=== PATIENT | female | born 1965 | race Caucasian/White ===

== ENCOUNTER 2023-08-02 22:30 | Observation (INO) | payer MEDICAID, OTHER ==
[2023-08-02] MEDS ORDERED: solu-MEDROL ONE (23:08)
[2023-08-02] MEDS ORDERED: Sterile H2O 10 ml IJ ONE (23:08)
[2023-08-02 23:10] LABS: Absolute Neutrophil Ct (ANC) 5.21 x10^3/uL (1.4-6.9); BASOPHIL % 0.7 % (0.0-0.4); Basophil (Absolute #) 0.07 x10^3/uL (0-0.4); Eosinophil % 5.1 % (0.00-5.0); Eosinophil (Absolute #) 0.51 x10^3/uL (0-0.5); Hematocrit 42.9 % (35-47); Hemoglobin 14.5 g/dL (12.0-16.0); IMMATURE GRAN # 0.04 x10^3u/L (0.00-0.03); IMMATURE GRAN % 0.4 % (0.00-0.4); Lymphocyte (Absolute #) 3.47 x10^3/uL (1.0-4.6); Lymphocytes % 34.6 % (24.0-44.0); Mean Cell Volume 95.3 fL (78-100); Mean Corpuscular Hemoglobin 32.2 pg (26-32); Mean Corpuscular Hgb Concent. 33.8 g/dL (32-36); Mean Platelet Volume 10.6 fL (7.5-11.0); Monocyte (Absolute #) 0.73 x10^3/uL (0.0-1.3); Monocytes % 7.3 % (0.0-12.0); Neutrophil % 51.9 % (36.0-66.0); Platelet Count 184 x10^3/uL (150-450); Red Cell Distribution Width 13.2 % (11.5-14.0)
[2023-08-02] MEDS: solu-MEDROL 125 MG, Sterile H2O 10 ml 2 ML IV ONE (23:32)
[2023-08-02 23:33] LABS: ANION GAP 14.6 MEQ/L (5-15); BILIRUBIN,TOTAL 0.6 mg/dL (0.2-1.3); Calcium 9.3 mg/dL (8.4-10.2); Creatinine 1 0.75 mg/dL (0.52-1.04); EST GLOMERULAR FILTRATION RATE 91.1 ML/MIN; Potassium 3.4 mmol/L (3.5-5.1); Total Protein 6.8 g/dL (6.3-8.2)
[2023-08-02 23:44] LABS: NT PRO BNPII 85.9 pg/mL (<300); TROPONIN < 0.012 ng/mL (0.000-0.033)
[2023-08-02] MEDS ORDERED: DUONEB 0.5-3 MG/3 ml Neb IH ONE (23:46)
[2023-08-02] MEDS: DUONEB 0.5-3 MG/3 ml Neb IH ONE (23:47)
--- NOTE | 2023-08-02 23:55 | XRAY ---
CLINICAL HISTORY: numbness/ tingling COMPARISON: None. TECHNIQUE: Axial noncontrast CT scan of the brain was performed from the skull base to the high parietal region .One of the following dose reduction techniques were utilized for this exam: Automated exposure control, adjustment of the mA and/or kV according to patient size, use of iterative reconstruction. FINDINGS: Suspicious hypodense is seen in the luis on right side on stroke window, concerning for acute infarct. Other possibility could be artifactual hypodensity. A 3 mm calcified nodule is seen in the quadrigeminal cistern on left side. The visualized brain parenchyma shows normal appearance. Bruner-white matter differentiation is maintained. No midline shifts or deformity. No intracerebral or extra axial hematoma. Normal size and configuration of the cerebral ventricles. Normal CT appearance of the posterior fossa structures namely the cerebellar hemispheres, brainstem and cerebellar peduncles. The IACs are unremarkable. The cerebello-pontine angles are clear. The osseous structures in the skull base are unremarkable. No definite calvarium fractures. The scanned paranasal sinuses are clear. Bilateral mastoid air cells appear unremarkable. IMPRESSION: 1. Suspicious hypodense in the luis on right side on stroke window, concerning for acute infarct. Other possibility could be artifactual hypodensity. MR imaging with stroke protocol is recommended for better evaluation 2. 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 Electronically Signed by: Darren Izquierdo MD. (08/02/2023 23:50:21 EDT)
--- NOTE | 2023-08-02 23:58 | ERPHSYRPT ---
- History of Present Illness Time Seen by Provider: 08/02/23 22:40 Source: patient, family Exam Limitations: no limitations Patient Subjective Stated Complaint: pt states that at approx 2200 she noticed dulled sensation to tongue, lips, and right hand/fingers. reports tingling to fingers on right hand. states that at that same approx time she started experiencing SOB. 911 was called and pt was evaluated by EMS/ Fire Rescue then pt decided to come to ED via POV Triage Nursing Assessment: pt brought to room 9 via wheelchair then ambulated to and from restroom to provide urine sample for lab testing. pt is alert and oriented times three, able to speak in complee sentences, able to move all extremities, and with resp even and unlabored without use of accessory muscles. heart sounds are present and regular upon auscultation. bilat posterior lung sounds with expiratory wheezes throughout, bilat radial and pedal pulses palpable. no JVD or edema noted. see NIHSS documentation. pt denies oquendo, pain, cp, lightheadedness, weakness, dizziness, fever, cough, chills, n/v, diarrhea, change in appetite or difficulty with urinary or bowel elimination. pt reports continued dulled sensation to entire tongue, upper and lower lips, and right hand/fingers. right fingers are also reportedly tingling. pt denies difficulty swallowing, or breathing. Physician History: 58 years old female with history of hypertension, tobacco abuse, COPD presented in the ER with sudden onset numbness and tingling sensation in the lower lip lip across and right side of tongue and right fingertip around 10 PM. Denies any difficulty speech or visual disturbance. No numbness tingling or weakness anywhere else. Patient reports having some shortness of breath and was feeling very anxious, took rescue inhaler and her shortness of breath is better. She has cough and shortness of breath at her baseline from COPD and currently not any worse than usual. Denies any chest pain or palpitations. Denies any headache or neck pain. No history of stroke in the past. Allergies/Adverse Reactions: No Known Drug Allergies Allergy (Unverified 08/02/23 22:38) Home Medications: Albuterol Sulfate [Proair Respiclick] 2 puff IH UD PRN 08/02/23 [History] Donepezil HCl 10 mg [Aricept 10 MG] 10 mg PO DAILY 08/02/23 [History] Fluticasone Furoate [Arnuity Ellipta] 100 mcg IH DAILY 08/02/23 [History] Lisinopril 10 mg [Zestril 10 MG] 10 mg PO DAILY 08/02/23 [History] Meloxicam 15 mg [Meloxicam 15 MG] 15 mg PO DAILY 08/02/23 [History] hydroCHLOROthiazide [Hydrochlorothiazide] 12.5 mg PO DAILY 08/02/23 [History] Hx Tetanus, Diphtheria Vaccination/Date Given: No Hx Influenza Vaccination/Date Given: No Hx Pneumococcal Vaccination/Date Given: No Immunizations Up to Date: No Travel Risk - International Travel Have you traveled outside of the country in past 3 weeks: No - Emerging Infectious Disease Are you exhibiting symptoms associated with any current EIDs: No - Review of Systems Constitutional: Fatigue, Weakness Eyes: No Symptoms Ears, Nose, & Throat: No Symptoms Respiratory: Cough, Dyspnea, Wheezing Cardiac: No Symptoms Abdominal/Gastrointestinal: No Symptoms Genitourinary Symptoms: No Symptoms Musculoskeletal: No Symptoms Skin: No Symptoms Endocrine: No Symptoms Hematologic/Lymphatic: No Symptoms - Past Medical History Pertinent Past Medical History: Yes Neurological History: Dementia ENT History: No Pertinent History Cardiac History: Hypertension Respiratory History: COPD, Emphysema Endocrine Medical History: No Pertinent History Musculoskeletal History: Osteoarthritis GI Medical History: No Pertinent History History: No Pertinent History Psycho-Social History: No Pertinent History Female Reproductive Disorders: No Pertinent History - Past Surgical History Past Surgical History: Yes Neuro Surgical History: No Pertinent History Cardiac: No Pertinent History Respiratory: No Pertinent History Gastrointestinal: No Pertinent History Genitourinary: No Pertinent History Musculoskeletal: No Pertinent History Female Surgical History: Section - Social History Smoking Status: Current every day smoker How long have you smoked: 11yo Exposure to second hand smoke: Yes Drug Use: none - Nursing Vital Signs Nursing Vital Signs: Initial Vital Signs Temperature 98.0 F 08/02/23 22:39 Pulse Rate 94 H 08/02/23 22:39 Respiratory Rate 24 08/02/23 22:39 Blood Pressure 133/79 08/02/23 22:39 O2 Sat by Pulse Oximetry 92 L 08/02/23 22:39 Pain Scale Pain Intensity 0 - Thayer Coma Scale Best Eye Response (Sybil): (4) open spontaneously Best Verbal Response (Sybil): (5) oriented Best Motor Response (Thayer): (6) obeys commands Sybil Total: 15 - Physical Exam General Appearance: no apparent distress, alert Eye Exam: bilateral eye: normal inspection, PERRL, EOMI Ears, Nose, Throat Exam: normal ENT inspection, TMs normal, pharynx normal, moist mucous membranes Neck Exam: normal inspection, non-tender, supple, full range of motion Respiratory: rhonchi, wheezing, No respiratory distress Cardiovascular: regular rate/rhythm, normal heart sounds Gastrointestinal: soft, normal bowel sounds, No tenderness Back Exam: normal inspection, normal range of motion Extremity Exam: normal inspection, normal range of motion Mental Status: alert, oriented x 3, 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 Exam: normal hearing, normal speech, PERRL Coordination/Gait: normal finger to nose, normal gait, normal cerebellar function Motor/Sensory: no motor deficit, sensory deficit (Lower lip decrease sensation of touch) DTR: bicep (R): 2+, bicep (L): 2+, knee (R): 2+, knee (L): 2+ Skin Exam: normal color SpO2 Interpretation: normal SpO2: 92 O2 Delivery: Room Air - Course EKG Interpreted by Me: RATE ([id number]), Sinus Rhythm, NORMAL AXIS, NORMAL INTERVALS, Non-specific ST Changes Ordered Tests: Active Orders 24 hr Category Date Time Status [employer] STAT Care 08/02/23 22:57 Active EKG-ER Only STAT Care 08/02/23 22:56 Active IV Insertion STAT Care 08/02/23 22:56 Active Oxygen-ED Only Nasal Cannula 3 lpm Care 08/03/23 00:22 Active Tele-Health Consult ROUTINE Cons 08/03/23 00:20 Active CHEST 1 VIEW (PORTABLE) Stat Exams 08/02/23 22:[address] ANGIOGRAPHY NECK [CT] Stat Exams 08/03/23 01:42 Ordered CTA HEAD W AND/OR WO CONTRAST [CT] Stat Exams 08/03/23 01:42 Ordered HEAD WITHOUT CONTRAST [CT] Stat Exams 08/02/23 22:53 Completed BLOOD CULTURE Stat Lab 08/02/23 23:36 Received CBC W DIFF Stat Lab 08/02/23 23:07 Completed CMP Stat Lab 08/02/23 23:07 Completed CULTURE,URINE Stat Lab 08/02/23 23:59 Received Lactic Acid Stat Lab 08/02/23 23:20 Completed MAGNESIUM Stat Lab 08/02/23 23:07 Completed NT PRO BNPII Stat Lab 08/02/23 23:07 Completed TROPONIN Q4H Lab 08/02/23 23:07 Completed TROPONIN Q4H Lab 08/03/23 03:00 Ordered TROPONIN Q4H Lab 08/03/23 07:00 Ordered UA W/RFX UR CULTURE Stat Lab 08/02/23 23:59 Completed Respiratory Therapy Assessment DAILY RT 08/02/23 23:37 Active Transfer Order Routine Transfer 08/03/23 Ordered Medication Summary Generic Name Dose Route Start Last Admin Trade Name Freq PRN Reason Stop Dose Admin Levofloxacin/Dextrose 750 mg in 150 mls @ 100 mls/hr 08/03/23 01:43 Levofloxacin 750mg/150ml D5w IV 08/03/23 03:12 STAT STA Discontinued Medications Generic Name Dose Route Start Last Admin Trade Name Garth PRN Reason Stop Dose Admin Albuterol/Ipratropium 3 ml 08/02/23 22:56 08/02/23 23:47 Ipratropium/Albuterol Sulfate 3 Ml Ampul.Neb IH 08/02/23 22:57 3 ml STAT ONE Administration Albuterol/Ipratropium Confirm 08/02/23 23:46 Ipratropium/Albuterol Sulfate 3 Ml Ampul.Neb Administered 08/02/23 23:47 Dose 3 ml IH .STK-MED ONE Aspirin 325 mg 08/03/23 01:42 Aspirin 325 Mg Tablet.Ec PO 08/03/23 01:43 ONCE STA Methylprednisolone Sodium 0 mg 08/02/23 22:56 08/02/23 23:32 Succinate 125 mg/ Sterile IV 08/02/23 22:57 125 mg Water 2 ml STAT ONE Administration Methylprednisolone Sodium Succinate Confirm 08/02/23 23:08 Methylprednis Sod Succ 125 Mg/2 Ml Vial Administered 08/02/23 23:09 Dose 125 mg .ROUTE .STK-MED ONE Sterile Water Confirm 08/02/23 23:08 Water For Injection,Sterile 10 Ml Vial Administered 08/02/23 23:09 Dose 10 ml IJ .STK-MED ONE Lab/Rad Data: Laboratory Result Diagrams 08/02/23 23:07 08/02/23 23:07 Laboratory Results 08/02/23 08/02/23 08/02/23 Range/Units 23:59 23:36 23:20 WBC (4.0-10.5) x10^3/uL RBC (4.1-5.4) x10^6/uL Hgb (12.0-16.0) g/dL Hct (35-47) % MCV (78-100) fL MCH (26-32) pg MCHC (32-36) g/dL RDW (11.5-14.0) % Plt Count (150-450) x10^3/uL MPV (7.5-11.0) fL Gran % (36.0-66.0) % Immature Gran % (Auto) (0.00-0.4) % Nucleat RBC Rel Count (0.00-0.1) % Eos # (Auto) (0-0.5) x10^3/uL Immature Gran # (Auto) (0.00-0.03) x10^3u/L Absolute Lymphs (auto) (1.0-4.6) x10^3/uL Absolute Monos (auto) (0.0-1.3) x10^3/uL Absolute Nucleated RBC (0.00-0.01) x10^3u/L Lymphocytes % (24.0-44.0) % Monocytes % (0.0-12.0) % Eosinophils % (0.00-5.0) % Basophils % (0.0-0.4) % Absolute Granulocytes (1.4-6.9) x10^3/uL Basophils # (0-0.4) x10^3/uL Sodium (135-145) mmol/L Potassium (3.5-5.1) mmol/L Chloride (98-107) mmol/L Carbon Dioxide (22-30) mmol/L Anion Gap (5-15) MEQ/L BUN (7-17) mg/dL Creatinine (0.52-1.04) mg/dL Estimated GFR ML/MIN Glucose (74-106) mg/dL Lactic Acid 1.8 (0.4-2.0) Calcium (8.4-10.2) mg/dL Magnesium (1.6-2.3) mg/dL Total Bilirubin (0.2-1.3) mg/dL AST (14-36) U/L ALT (0-35) U/L Alkaline Phosphatase (38-126) U/L Troponin I (0.000-0.033) ng/mL NT-Pro-B Natriuret Pep (<300) pg/mL Serum Total Protein (6.3-8.2) g/dL Albumin (3.5-5.0) g/dL Urine Color Yellow (Yellow) Urine Appearance Clear (Clear) Urine pH 5.5 (4.6-8.0) Ur Specific Sanford <=1.005 (1.005-1.030) Urine Protein Negative (Negative) Urine Glucose (UA) Negative (Negative) mg/dL Urine Ketones Negative (Negative) Urine Blood Negative (Negative) Urine Nitrite Negative (Negative) Urine Bilirubin Negative (Negative) Urine Urobilinogen 0.2 (0.2) mg/dL Ur Leukocyte Esterase Small A (Negative) U Hyaline Cast (Auto) NONE SEEN (0-2) /LPF Urine Microscopic RBC 0-2 (0-5) /HPF Urine Microscopic WBC 6-10 A (0-5) /HPF Ur Epithelial Cells None Seen (None Seen) /HPF Urine Bacteria Few A (None Seen) /HPF Urine Culture Reflexed YES (NO) Influenza Type A Ag NEGATIVE (NEGATIVE) Influenza Type B Ag NEGATIVE (NEGATIVE) RSV (PCR) NEGATIVE (NEGATIVE) SARS-CoV-2 (PCR) NEGATIVE (NEGATIVE) 08/02/23 08/02/23 08/02/23 Range/Units 23:07 23:07 23:07 WBC 10.0 (4.0-10.5) x10^3/uL RBC 4.50 (4.1-5.4) x10^6/uL Hgb 14.5 (12.0-16.0) g/dL Hct 42.9 (35-47) % MCV 95.3 (78-100) fL MCH 32.2 H (26-32) pg MCHC 33.8 (32-36) g/dL RDW 13.2 (11.5-14.0) % Plt Count 184 (150-450) x10^3/uL MPV 10.6 (7.5-11.0) fL Gran % 51.9 (36.0-66.0) % Immature Gran % (Auto) 0.4 (0.00-0.4) % Nucleat RBC Rel Count 0.0 (0.00-0.1) % Eos # (Auto) 0.51 H (0-0.5) x10^3/uL Immature Gran # (Auto) 0.04 H (0.00-0.03) x10^3u/L Absolute Lymphs (auto) 3.47 (1.0-4.6) x10^3/uL Absolute Monos (auto) 0.73 (0.0-1.3) x10^3/uL Absolute Nucleated RBC 0.00 (0.00-0.01) x10^3u/L Lymphocytes % 34.6 (24.0-44.0) % Monocytes % 7.3 (0.0-12.0) % Eosinophils % 5.1 H (0.00-5.0) % Basophils % 0.7 (0.0-0.4) % Absolute Granulocytes 5.21 (1.4-6.9) x10^3/uL Basophils # 0.07 (0-0.4) x10^3/uL Sodium 138 (135-145) mmol/L Potassium 3.4 L (3.5-5.1) mmol/L Chloride 104 (98-107) mmol/L Carbon Dioxide 23 (22-30) mmol/L Anion Gap 14.6 (5-15) MEQ/L BUN 11 (7-17) mg/dL Creatinine 0.75 (0.52-1.04) mg/dL Estimated GFR 91.1 ML/MIN Glucose 104 (74-106) mg/dL Lactic Acid (0.4-2.0) Calcium 9.3 (8.4-10.2) mg/dL Magnesium 2.0 (1.6-2.3) mg/dL Total Bilirubin 0.60 (0.2-1.3) mg/dL AST 30 (14-36) U/L ALT 24 (0-35) U/L Alkaline Phosphatase 67 (38-126) U/L Troponin I < 0.012 (0.000-0.033) ng/mL NT-Pro-B Natriuret Pep 85.9 (<300) pg/mL Serum Total Protein 6.8 (6.3-8.2) g/dL Albumin 4.0 (3.5-5.0) g/dL Urine Color (Yellow) Urine Appearance (Clear) Urine pH (4.6-8.0) Ur Specific Sanford (1.005-1.030) Urine Protein (Negative) Urine Glucose (UA) (Negative) mg/dL Urine Ketones (Negative) Urine Blood (Negative) Urine Nitrite (Negative) Urine Bilirubin (Negative) Urine Urobilinogen (0.2) mg/dL Ur Leukocyte Esterase (Negative) U Hyaline Cast (Auto) (0-2) /LPF Urine Microscopic RBC (0-5) /HPF Urine Microscopic WBC (0-5) /HPF Ur Epithelial Cells (None Seen) /HPF Urine Bacteria (None Seen) /HPF Urine Culture Reflexed (NO) Influenza Type A Ag (NEGATIVE) Influenza Type B Ag (NEGATIVE) RSV (PCR) (NEGATIVE) SARS-CoV-2 (PCR) (NEGATIVE) - Progress Progress: improved Progress Note: 08/03/23 02:30 58 years old is evaluated for sudden onset numbness around lips and right hand. No other focal weakness. Ambulating in the ER without any limitation. Prompt CT head is obtained per stroke protocol which is showing some hypodense lesion in the luis area which needs further evaluation with MRI. Workup otherwise showed normal white count, fairly unremarkable chemistries, negative troponin. EKG normal sinus rhythm with no acute ischemic changes. I have obtain [facility] neurology consult who has evaluated patient, do not think patient is a candidate for tPA because of NIH which on initial presentation was around 1 and is impr иван now to 0. But neurology did recommend obtaining CTA tonight and MRI in the morning. While patient was in the ER she was desatting to 86 to 88%. Placed on 2 L oxygen. He is around 92%. Chest x-ray negative for any acute cardiopulmonary findings interpreted by me, official report is pending she is also given DuoNeb and Solu-Medrol on presentation. I believe patient has some element of COPD exacerbation as well. Given dose of Levaquin. Discussed results of workup and plan/recommended admission for further evaluation which she understands and agrees. I have discussed with Dr. Benton patient is being admitted. 08/03/23 02:34 Discussed with : Other (Dr. Morgan hospitalist) Will see patient in: hospital (observation) Counseled pt/family regarding: lab results, diagnosis, rad results Medical Desision Making - Independent Historian Additional History obtained from: Spouse - Discussion of managment Care discussed with:: specialist (LUISA neurologist/Dr. Morgan hospitalist) Reviewed:: Test results Agreed on:: Treatment plan, place in obs Will see patient: in hospital - Diagnostic Testing Diagnostic test were ordered, analyzed, and reviewed by me: Yes Radiological Interpretation: Reviewed by me, Teleradiologist Report - Risk of complications The pt has a high risk of morbidity or mortality based on: Decision regarding hospitilization or escalation of hosp level of care - Departure Departure Disposition: Observation Clinical Impression: Stroke-like symptoms, COPD exacerbation Condition: Stable Critical Care Time: No Referrals: JENNIE SCOTT, DIE CLEANER [Primary Care Provider] - Follow up/PCP as directed Instructions: Chronic Obstructive Pulmonary Disease
[2023-08-03 00:14] LABS: INFLUENZA A NEGATIVE (NEGATIVE); INFLUENZA B NEGATIVE (NEGATIVE); RESPIRATORY SYNCTIAL VIRUS NEGATIVE (NEGATIVE); SARS-CoV-2 Xpert Express NEGATIVE (NEGATIVE)
[2023-08-03 00:33] LABS: Appearance Clear (Clear); Bacteria Few /HPF (None Seen); Bilirubin Negative (Negative); Blood Negative (Negative); Epithelial Cells None Seen /HPF (None Seen); Glucose, Urine Negative (Negative); Hyaline Casts NONE SEEN /LPF (0-2); Ketones Negative (Negative); Leukocyte Esterase Small (Negative); Nitrite Negative (Negative); Ph 5.5 (4.6-8.0); Protein,Urine Dip Negative (Negative); RBC 0-2 /HPF (0-5); Specific Gravity <=1.005 (1.005-1.030); Urobilinogen 0.2 mg/dL (0.2)
[2023-08-03 00:38] LABS: ADD URINE CULTURE? YES (NO)
[2023-08-03] MEDS ORDERED: Ecotrin 325 MG PO STA (01:42)
[2023-08-03] MEDS ORDERED: LEVOFLOXACIN 750MG/150ML D5W 750 MG/150 ML BAG IV STA (01:43)
--- NOTE | 2023-08-03 03:59 | XRAY ---
CLINICAL HISTORY: stroke like sx COMPARISON: None TECHNIQUE: CT of the neck angiography was performed with contrast in the arterial phase. Sagittal, coronal and MIP reconstructions were obtained. One of the following dose reduction techniques were utilized for this exam: Automated exposure control, adjustment of the mA and/or kV according to patient size, use of iterative reconstruction? FINDINGS: Patent homogenously opacified common carotid arteries showing mild intimal irregularities. No stenotic lesions, aneurysmal dilatation or dissecting intimal flaps. Patent carotid bulbs. Patent homogenously opacified cervical segments of the internal carotid arteries showing retropharyngeal course. Patent external carotid arteries. Dominant right vertebral artery (variant). [place], patent vertebral arteries showing homogenous contrast opacification. No stenotic lesions or dissecting intimal flaps. IMPRESSION: atent extra-cranial carotid and vertebral arteries. No stenotic lesions, aneurysmal dilatation or dissecting intimal flaps. Electronically Signed by: Darren Izquierdo MD. (08/03/2023 03:54:48 EDT)
--- NOTE | 2023-08-03 04:08 | XRAY ---
CLINICAL HISTORY: stroke like sx COMPARISON: CT study dated 08/02/2023. TECHNIQUE: Multiple axial slices from CT angiography of intracranial vessels have been submitted for interpretation. One of the following dose reduction techniques was utilized for this exam: Automated exposure control, adjustment of the mA and/or kV according to patient size, use of iterative reconstruction? FINDINGS: Patent petrous, cavernous, and supraclinoid segments of the internal carotid arteries with nonsignificant calcified atheromatous plaques of their cavernous segments. Homogenous contrast filling of the anterior cerebral arteries (A1 to A4), and anterior communicating artery (A Com). Homogenous contrast filling of the middle cerebral arteries and their branches. Dolichoectatic basilar artery. Homogenous contrast filling of the basilar artery and V4 segments of the vertebral arteries. Normal contrast filling of the posterior cerebral arteries and their normal anatomical variants from P1 to P4 as well as the posterior communicating arteries appear normal. Normal contrast filling is noted in all of these mentioned arteries without any stenotic lesions, occlusion, aneurysmal dilatation, or arteriovenous malformation. In distinction of the right side pontine hypodense area. Left maxillary mucosal thickening. IMPRESSION: 1. Patent intracranial vessels constituting the [place] without any occlusion, aneurysmal dilatation, or arteriovenous malformation. 2. In distinction of the right side pontine hypodense area, possibly artifactual. Electronically Signed by: Darren Izquierdo MD. (08/03/2023 04:02:37 EDT)
--- NOTE | 2023-08-03 05:08 | PCM.HP ---
History of Present Illness - Chief Complaint Date: 08/03/23 History of Present Illness: Ms. Yao is a 58 year-old female with HTN and COPD who presents with numbness and tingling. She admits to a sudden on of numbness and tingling around her lips, side of her tongue, and her fingertip. The symptoms lasted 3 hours, and by the time she arrived at [place], her symptoms had resolved. However, she was also noted to be wheezing and short of breath which were both alleviated with nebulizer treatments and IV steroids. Laboratory data revealed a mild UTI, and brain imaging revealed a hypodensity in the Radha. On my examination, she is resting comfortably denying any current fevers, chills, nausea, vomiting, diarrhea, syncope, presyncope, visual changes, orthopnea, PND, odynophagia, dysphagia, chest pain, shortness of breath, belly pain, dysuria, hematuria, melena, hematochezia, or neurological changes. All other systems were reviewed and were negative. - Review of Systems Constitutional: Other ( PER HPI) Medications & Allergies Home Medications: Home Medication List Albuterol Sulfate [Proair Respiclick] 2 puff IH UD PRN 08/02/23 [History Confirmed 08/02/23] Donepezil HCl 10 mg [Aricept 10 MG] 10 mg PO DAILY 08/02/23 [History Confirmed 08/02/23] Fluticasone Furoate [Arnuity Ellipta] 100 mcg IH DAILY 08/02/23 [History Confirmed 08/02/23] Lisinopril 10 mg [Zestril 10 MG] 10 mg PO DAILY 08/02/23 [History Confirmed 08/02/23] Meloxicam 15 mg [Meloxicam 15 MG] 15 mg PO DAILY 08/02/23 [History Confirmed 08/02/23] hydroCHLOROthiazide [Hydrochlorothiazide] 12.5 mg PO DAILY 08/02/23 [History Confirmed 08/02/23] Allergies/Adverse Reactions: Allergies Allergy/AdvReac Type Severity Reaction Status Date / Time No Known Drug Allergies Allergy Unverified 08/02/23 22:38 - Past Medical History Past Medical History: Yes Neurological History: Dementia, Migraines ENT History: No Pertinent History, Cataracts Cardiac History: Hypertension Respiratory History: COPD, Emphysema Endocrine Medical History: No Pertinent History Musculoskelatal History: Osteoarthritis GI Medical History: No Pertinent History History: No Pertinent History Pyscho-Social History: No Pertinent History Reproductive Disorders: No Pertinent History - Past Surgical History Past Surgical History: Yes Neuro Surgical History: No Pertinent History Cardiac History: No Pertinent History Respiratory Surgery: No Pertinent History GI Surgical History: No Pertinent History Genitourinary Surgical Hx: No Pertinent History Musculskeletal Surgical Hx: No Pertinent History Female Surgical History: Section Significant Family History: no pertinent family hx - Social History Smoking Status: Current every day smoker How long have you smoked: 11yo Exposure to second hand smoke: Yes Alcohol: Occasionally Drug Use: none - Social Determinants of Health Will the patient participate in the screening: Yes Do you worry about a steady place to live?: No Do you have any problems with any of the following?: No known problems In the past 12 months,have you had to go without utilities?: No Have you or anyone in your house had to go without enough: No Transportation Issues: No Has anyone in your support network made you feel unsafe?: No - Physical Exam Vital Signs: Vital Signs - 24 hr Temp Pulse Resp BP BP Pulse Ox 08/03/23 03:30 122/74 08/03/23 03:01 77 26 H 107/54 91 L 08/03/23 02:34 92 L 08/03/23 02:30 75 23 134/76 93 L 08/03/23 02:01 82 19 108/70 94 L 08/03/23 01:32 69 22 127/79 92 L 08/03/23 01:01 69 22 117/72 93 L 08/03/23 00:11 72 25 H 89 L 08/03/23 00:00 74 15 121/65 97 08/02/23 23:47 78 22 92 L 08/02/23 23:34 80 26 H 104/60 87 L 08/02/23 22:44 93 H 20 133/75 93 L 08/02/23 22:39 98.0 F 94 H 24 133/79 92 L General Appearance: no apparent distress, alert Neurologic Exam: alert, oriented x 3, cooperative, normal mood/affect, nml cerebellar function, nml station & gait, sensation nml, No motor deficits Eye Exam: PERRL/EOMI, eyes nml inspection Ears, Nose, Throat Exam: normal ENT inspection, TMs normal, pharynx normal, moist mucous membranes Neck Exam: normal inspection, non-tender, supple, full range of motion Respiratory Exam: normal breath sounds, lungs clear, No respiratory distress Cardiovascular Exam: regular rate/rhythm, normal heart sounds, normal peripheral pulses Gastrointestinal/Abdomen Exam: soft, normal bowel sounds, No tenderness, No mass Back Exam: normal inspection, normal range of motion, No CVA tenderness, No vertebral tenderness Extremity Exam: normal inspection, normal range of motion, pelvis stable Skin Exam: normal color, warm, dry, No rash Lymphatic Exam: No adenopathy Results - Labs Lab/Micro Results: Lab Results-Last 24 Hours 08/02/23 08/02/23 08/02/23 Range/Units 23:07 23:07 23:07 WBC 10.0 (4.0-10.5) x10^3/uL RBC 4.50 (4.1-5.4) x10^6/uL Hgb 14.5 (12.0-16.0) g/dL Hct 42.9 (35-47) % MCV 95.3 (78-100) fL MCH 32.2 H (26-32) pg MCHC 33.8 (32-36) g/dL RDW 13.2 (11.5-14.0) % Plt Count 184 (150-450) x10^3/uL MPV 10.6 (7.5-11.0) fL Gran % 51.9 (36.0-66.0) % Immature Gran % (Auto) 0.4 (0.00-0.4) % Nucleat RBC Rel Count 0.0 (0.00-0.1) % Eos # (Auto) 0.51 H (0-0.5) x10^3/uL Immature Gran # (Auto) 0.04 H (0.00-0.03) x10^3u/L Absolute Lymphs (auto) 3.47 (1.0-4.6) x10^3/uL Absolute Monos (auto) 0.73 (0.0-1.3) x10^3/uL Absolute Nucleated RBC 0.00 (0.00-0.01) x10^3u/L Lymphocytes % 34.6 (24.0-44.0) % Monocytes % 7.3 (0.0-12.0) % Eosinophils % 5.1 H (0.00-5.0) % Basophils % 0.7 (0.0-0.4) % Absolute Granulocytes 5.21 (1.4-6.9) x10^3/uL Basophils # 0.07 (0-0.4) x10^3/uL Sodium 138 (135-145) mmol/L Potassium 3.4 L (3.5-5.1) mmol/L Chloride 104 (98-107) mmol/L Carbon Dioxide 23 (22-30) mmol/L Anion Gap 14.6 (5-15) MEQ/L BUN 11 (7-17) mg/dL Creatinine 0.75 (0.52-1.04) mg/dL Estimated GFR 91.1 ML/MIN Glucose 104 (74-106) mg/dL Lactic Acid (0.4-2.0) Calcium 9.3 (8.4-10.2) mg/dL Magnesium 2.0 (1.6-2.3) mg/dL Total Bilirubin 0.60 (0.2-1.3) mg/dL AST 30 (14-36) U/L ALT 24 (0-35) U/L Alkaline Phosphatase 67 (38-126) U/L Troponin I < 0.012 (0.000-0.033) ng/mL NT-Pro-B Natriuret Pep 85.9 (<300) pg/mL Serum Total Protein 6.8 (6.3-8.2) g/dL Albumin 4.0 (3.5-5.0) g/dL Urine Color (Yellow) Urine Appearance (Clear) Urine pH (4.6-8.0) Ur Specific [place] (1.005-1.030) Urine Protein (Negative) Urine Glucose (UA) (Negative) mg/dL Urine Ketones (Negative) Urine Blood (Negative) Urine Nitrite (Negative) Urine Bilirubin (Negative) Urine Urobilinogen (0.2) mg/dL Ur Leukocyte Esterase (Negative) U Hyaline Cast (Auto) (0-2) /LPF Urine Microscopic RBC (0-5) /HPF Urine Microscopic WBC (0-5) /HPF Ur Epithelial Cells (None Seen) /HPF Urine Bacteria (None Seen) /HPF Urine Culture Reflexed (NO) Influenza Type A Ag (NEGATIVE) Influenza Type B Ag (NEGATIVE) RSV (PCR) (NEGATIVE) SARS-CoV-2 (PCR) (NEGATIVE) 08/02/23 08/02/23 08/02/23 Range/Units 23:20 23:36 23:59 WBC (4.0-10.5) x10^3/uL RBC (4.1-5.4) x10^6/uL Hgb (12.0-16.0) g/dL Hct (35-47) % MCV (78-100) fL MCH (26-32) pg MCHC (32-36) g/dL RDW (11.5-14.0) % Plt Count (150-450) x10^3/uL MPV (7.5-11.0) fL Gran % (36.0-66.0) % Immature Gran % (Auto) (0.00-0.4) % Nucleat RBC Rel Count (0.00-0.1) % Eos # (Auto) (0-0.5) x10^3/uL Immature Gran # (Auto) (0.00-0.03) x10^3u/L Absolute Lymphs (auto) (1.0-4.6) x10^3/uL Absolute Monos (auto) (0.0-1.3) x10^3/uL Absolute Nucleated RBC (0.00-0.01) x10^3u/L Lymphocytes % (24.0-44.0) % Monocytes % (0.0-12.0) % Eosinophils % (0.00-5.0) % Basophils % (0.0-0.4) % Absolute Granulocytes (1.4-6.9) x10^3/uL Basophils # (0-0.4) x10^3/uL Sodium (135-145) mmol/L Potassium (3.5-5.1) mmol/L Chloride (98-107) mmol/L Carbon Dioxide (22-30) mmol/L Anion Gap (5-15) MEQ/L BUN (7-17) mg/dL Creatinine (0.52-1.04) mg/dL Estimated GFR ML/MIN Glucose (74-106) mg/dL Lactic Acid 1.8 (0.4-2.0) Calcium (8.4-10.2) mg/dL Magnesium (1.6-2.3) mg/dL Total Bilirubin (0.2-1.3) mg/dL AST (14-36) U/L ALT (0-35) U/L Alkaline Phosphatase (38-126) U/L Troponin I (0.000-0.033) ng/mL NT-Pro-B Natriuret Pep (<300) pg/mL Serum Total Protein (6.3-8.2) g/dL Albumin (3.5-5.0) g/dL Urine Color Yellow (Yellow) Urine Appearance Clear (Clear) Urine pH 5.5 (4.6-8.0) Ur Specific [place] <=1.005 (1.005-1.030) Urine Protein Negative (Negative) Urine Glucose (UA) Negative (Negative) mg/dL Urine Ketones Negative (Negative) Urine Blood Negative (Negative) Urine Nitrite Negative (Negative) Urine Bilirubin Negative (Negative) Urine Urobilinogen 0.2 (0.2) mg/dL Ur Leukocyte Esterase Small A (Negative) U Hyaline Cast (Auto) NONE SEEN (0-2) /LPF Urine Microscopic RBC 0-2 (0-5) /HPF Urine Microscopic WBC 6-10 A (0-5) /HPF Ur Epithelial Cells None Seen (None Seen) /HPF Urine Bacteria Few A (None Seen) /HPF Urine Culture Reflexed YES (NO) Influenza Type A Ag NEGATIVE (NEGATIVE) Influenza Type B Ag NEGATIVE (NEGATIVE) RSV (PCR) NEGATIVE (NEGATIVE) SARS-CoV-2 (PCR) NEGATIVE (NEGATIVE) 08/03/23 Range/Units 03:24 WBC (4.0-10.5) x10^3/uL RBC (4.1-5.4) x10^6/uL Hgb (12.0-16.0) g/dL Hct (35-47) % MCV (78-100) fL MCH (26-32) pg MCHC (32-36) g/dL RDW (11.5-14.0) % Plt Count (150-450) x10^3/uL MPV (7.5-11.0) fL Gran % (36.0-66.0) % Immature Gran % (Auto) (0.00-0.4) % Nucleat RBC Rel Count (0.00-0.1) % Eos # (Auto) (0-0.5) x10^3/uL Immature Gran # (Auto) (0.00-0.03) x10^3u/L Absolute Lymphs (auto) (1.0-4.6) x10^3/uL Absolute Monos (auto) (0.0-1.3) x10^3/uL Absolute Nucleated RBC (0.00-0.01) x10^3u/L Lymphocytes % (24.0-44.0) % Monocytes % (0.0-12.0) % Eosinophils % (0.00-5.0) % Basophils % (0.0-0.4) % Absolute Granulocytes (1.4-6.9) x10^3/uL Basophils # (0-0.4) x10^3/uL Sodium (135-145) mmol/L Potassium (3.5-5.1) mmol/L Chloride (98-107) mmol/L Carbon Dioxide (22-30) mmol/L Anion Gap (5-15) MEQ/L BUN (7-17) mg/dL Creatinine (0.52-1.04) mg/dL Estimated GFR ML/MIN Glucose (74-106) mg/dL Lactic Acid (0.4-2.0) Calcium (8.4-10.2) mg/dL Magnesium (1.6-2.3) mg/dL Total Bilirubin (0.2-1.3) mg/dL AST (14-36) U/L ALT (0-35) U/L Alkaline Phosphatase (38-126) U/L Troponin I < 0.012 (0.000-0.033) ng/mL NT-Pro-B Natriuret Pep (<300) pg/mL Serum Total Protein (6.3-8.2) g/dL Albumin (3.5-5.0) g/dL Urine Color (Yellow) Urine Appearance (Clear) Urine pH (4.6-8.0) Ur Specific [place] (1.005-1.030) Urine Protein (Negative) Urine Glucose (UA) (Negative) mg/dL Urine Ketones (Negative) Urine Blood (Negative) Urine Nitrite (Negative) Urine Bilirubin (Negative) Urine Urobilinogen (0.2) mg/dL Ur Leukocyte Esterase (Negative) U Hyaline Cast (Auto) (0-2) /LPF Urine Microscopic RBC (0-5) /HPF Urine Microscopic WBC (0-5) /HPF Ur Epithelial Cells (None Seen) /HPF Urine Bacteria (None Seen) /HPF Urine Culture Reflexed (NO) Influenza Type A Ag (NEGATIVE) Influenza Type B Ag (NEGATIVE) RSV (PCR) (NEGATIVE) SARS-CoV-2 (PCR) (NEGATIVE) - Radiology Impressions Radiology Exams & Impressions: Radiology Procedures Category Date Time Status CHEST 1 VIEW (PORTABLE) Stat Exams 08/02/23 22:[address] ANGIOGRAPHY NECK [CT] Stat Exams 08/03/23 01:42 Completed CTA HEAD W AND/OR WO CONTRAST [CT] Stat Exams 08/03/23 01:42 Completed HEAD WITHOUT CONTRAST [CT] Stat Exams 08/02/23 22:53 Completed MRI BRAIN W/O CONTRAST [MRI] Routine Exams 08/03/23 05:00 Ordered - Other Procedures and Tests Respiratory Therapy 08/03/23 04:10 Oxygen Nasal Cannula 2 lpm Respiratory Therapy Consult ONCE Assessment/Plan (1) Stroke-like symptoms Current Visit: Yes Status: Acute Assessment & Plan: ANTIBIOTICS AND STEROIDS Ceftriaxone Solumedrol ASSESSMENT 1. Acute Paresthesias 2. Acute COPD Exacerbation 3. Non-Specific [place] Lesion 4. Urinary Tract Infection 4. Hypertension 5. Tobacco Abuse and Dependence PLAN 1. IV steroids + Duonebs 2. Ceftriaxone for UTI; cultures pending 3. MRI in AM 4. Continue home antihypertensives 5. Nicotine Patch 6. Smoking cessation counseled SCDs The entirety of this encounter was done via telemedicine with audio and visual. Consent was obtained for a telemedicine encounter. Jaiden Morgan MD Pulmonary and Critical Care Medicine Code(s): R29.90 - UNSPECIFIED SYMPTOMS AND SIGNS INVOLVING THE NERVOUS SYSTEM Telemedicine Encounter - Telemedicine Encounter Telemedicine Encounter: The entirety of this encounter was performed via Telemedicine"
[2023-08-03] MEDS: Nicoderm CQ 21 MG TOP SCH (05:35)
[2023-08-03] MEDS: ROCEPHIN 1 GM / 100 ML NaCl 1 GM/100 ML IVPB IV SCH (05:35)
[2023-08-03] MEDS ORDERED: solu-MEDROL ONE (06:13)
[2023-08-03] MEDS ORDERED: Sterile H2O 10 ml IJ ONE (06:13)
[2023-08-03] MEDS: solu-MEDROL 40 MG, Sterile H2O 10 ml 1 ML IV SCH (06:17)
[2023-08-03] MEDS: PATIENT OWN MEDICATION IH SCH (07:00)
[2023-08-03] MEDS: DUONEB 0.5-3 MG/3 ml Neb IH SCH (07:00)
[2023-08-03 08:16] LABS: Hematocrit 44.2 % (35-47); Hemoglobin 14.7 g/dL (12.0-16.0); Mean Cell Volume 95.1 fL (78-100); Mean Corpuscular Hemoglobin 31.6 pg (26-32); Mean Corpuscular Hgb Concent. 33.3 g/dL (32-36); Mean Platelet Volume 10.5 fL (7.5-11.0); Platelet Count 169 x10^3/uL (150-450); Red Blood Count 4.65 x10^6/uL (4.1-5.4); Red Cell Distribution Width 12.9 % (11.5-14.0); White Blood Count 5.5 x10^3/uL (4.0-10.5)
[2023-08-03 08:26] LABS: ALBUMIN 4.1 g/dL (3.5-5.0); ANION GAP 13.6 MEQ/L (5-15); BILIRUBIN,TOTAL 0.4 mg/dL (0.2-1.3); Calcium 9.2 mg/dL (8.4-10.2); Creatinine 1 0.59 mg/dL (0.52-1.04); EST GLOMERULAR FILTRATION RATE 103.1 ML/MIN; Potassium 4.3 mmol/L (3.5-5.1); Total Protein 7.2 g/dL (6.3-8.2)
[2023-08-03] MEDS: Klor Con PO SCH (09:06)
--- NOTE | 2023-08-03 09:15 | XRAY ---
Indication: Cough. Comparison: None Portable chest inflated and clear. Heart and mediastinal structures within normal limits. Bony thorax intact with mild degenerative changes and moderate dextroscoliosis centered at T6. Impression: Nonacute chest with chronic bony findings.
[2023-08-03] MEDS: Aricept 10 MG PO SCH (09:20)
[2023-08-03] MEDS: MELOXICAM PO SCH (09:20)
[2023-08-03] MEDS: ECOTRIN 81 MG PO SCH (09:20)
[2023-08-03] MEDS: Zestril 10 MG PO SCH (09:20)
[2023-08-03] MEDS: LIPITOR 40MG PO SCH (09:20)
[2023-08-03] MEDS ORDERED: FLUTICASONE FUROATE 100 MCG IH SCH (10:00)
[2023-08-03] MEDS ORDERED: hydroDIURIL 25 MG PO SCH (10:00)
[2023-08-03] MEDS ORDERED: NON-FORMULARY ITEM (Meloxicam 15 Mg [Meloxicam 15 Mg] 15 MG Tablet) PO SCH (10:00)
[2023-08-03] MEDS ORDERED: NON-FORMULARY ITEM (Hydrochlorothiazide [Hydrochlorothiazide] 12.5 MG Capsule) PO SCH (10:00)
--- NOTE | 2023-08-03 12:36 | PCM.DS ---
Discharge Summary Date of Admission: 08/03/23 03:59 Date of Discharge: 08/03/23 Admitting Physician: NATALEE XIE MD Consults: Consults on Case 08/03/23 00:20 Tele-Health Consult ROUTINE 08/03/23 08:06 Consult Neurology ROUTINE Primary Care Provider: JENNIE SCOTT NP Allergies Allergies No Known Drug Allergies Allergy (Unverified 08/02/23 22:38) Hospital Summary - Hospital Course Hospital Course: 08/03/23 Ms. Yao is a 58 year-old female with PMHX of HTN, COPD, smoker, obesity, OA d ementia, and migraines. She presented to ER on 08/02/23 with c/o numbness and tingling around her lips, side of her tongue, and her fingertip. The symptoms lasted 3 hours, and by the time she arrived at [place], her symptoms had resolved. However, she was also noted to be wheezing and short of breath which were both alleviated with nebulizer treatments and IV steroids in the ER. Laboratory data revealed a mild UTI, and brain imaging revealed a hypodensity in the [place]. MRI to be done at 1300 today. She is requesting to go home. Sxs have resolved since admission. She was started on statin and ASA. Advised smoking cessation and she refuses. She did well with Pt and has no neurological deficits on exam. UC is pending and will continue to follow OP if she does d/c today. Will have neurology F/U after MRI today for further recs. She denies CP, SOB, abd. pain, N/V/D. - Vitals & Intake/Output Vital Signs: Vital Signs Temperature 97.3 F 08/03/23 07:29 Pulse Rate 85 08/03/23 10:51 Respiratory Rate 20 08/03/23 10:51 Blood Pressure 128/65 08/03/23 07:29 O2 Sat by Pulse Oximetry 94 L 08/03/23 10:51 Intake & Output: Intake & Output 08/01/23 08/02/23 08/03/23 08/04/23 11:59 11:59 11:59 11:59 Intake Total 350 Balance 350 Weight 79.1 kg - Lab Result Diagrams: 08/03/23 07:15 08/03/23 07:15 Lab Results-Last 24 Hrs: Lab Results-Last 24 Hours 08/02/23 08/02/23 08/02/23 Range/Units 23:07 23:07 23:07 WBC 10.0 (4.0-10.5) x10^3/uL RBC 4.50 (4.1-5.4) x10^6/uL Hgb 14.5 (12.0-16.0) g/dL Hct 42.9 (35-47) % MCV 95.3 (78-100) fL MCH 32.2 H (26-32) pg MCHC 33.8 (32-36) g/dL RDW 13.2 (11.5-14.0) % Plt Count 184 (150-450) x10^3/uL MPV 10.6 (7.5-11.0) fL Gran % 51.9 (36.0-66.0) % Immature Gran % (Auto) 0.4 (0.00-0.4) % Nucleat RBC Rel Count 0.0 (0.00-0.1) % Eos # (Auto) 0.51 H (0-0.5) x10^3/uL Immature Gran # (Auto) 0.04 H (0.00-0.03) x10^3u/L Absolute Lymphs (auto) 3.47 (1.0-4.6) x10^3/uL Absolute Monos (auto) 0.73 (0.0-1.3) x10^3/uL Absolute Nucleated RBC 0.00 (0.00-0.01) x10^3u/L Lymphocytes % 34.6 (24.0-44.0) % Monocytes % 7.3 (0.0-12.0) % Eosinophils % 5.1 H (0.00-5.0) % Basophils % 0.7 (0.0-0.4) % Absolute Granulocytes 5.21 (1.4-6.9) x10^3/uL Basophils # 0.07 (0-0.4) x10^3/uL Sodium 138 (135-145) mmol/L Potassium 3.4 L (3.5-5.1) mmol/L Chloride 104 (98-107) mmol/L Carbon Dioxide 23 (22-30) mmol/L Anion Gap 14.6 (5-15) MEQ/L BUN 11 (7-17) mg/dL Creatinine 0.75 (0.52-1.04) mg/dL Estimated GFR 91.1 ML/MIN Glucose 104 (74-106) mg/dL Lactic Acid (0.4-2.0) Calcium 9.3 (8.4-10.2) mg/dL Magnesium 2.0 (1.6-2.3) mg/dL Total Bilirubin 0.60 (0.2-1.3) mg/dL AST 30 (14-36) U/L ALT 24 (0-35) U/L Alkaline Phosphatase 67 (38-126) U/L Troponin I < 0.012 (0.000-0.033) ng/mL NT-Pro-B Natriuret Pep 85.9 (<300) pg/mL Serum Total Protein 6.8 (6.3-8.2) g/dL Albumin 4.0 (3.5-5.0) g/dL Triglycerides (30-150) mg/dL Cholesterol (50-200) mg/dL LDL Cholesterol (30-100) mg/dL HDL Cholesterol (40-60) mg/dL Heart Disease Risk Ratio Urine Color (Yellow) Urine Appearance (Clear) Urine pH (4.6-8.0) Ur Specific [place] (1.005-1.030) Urine Protein (Negative) Urine Glucose (UA) (Negative) mg/dL Urine Ketones (Negative) Urine Blood (Negative) Urine Nitrite (Negative) Urine Bilirubin (Negative) Urine Urobilinogen (0.2) mg/dL Ur Leukocyte Esterase (Negative) U Hyaline Cast (Auto) (0-2) /LPF Urine Microscopic RBC (0-5) /HPF Urine Microscopic WBC (0-5) /HPF Ur Epithelial Cells (None Seen) /HPF Urine Bacteria (None Seen) /HPF Urine Culture Reflexed (NO) Influenza Type A Ag (NEGATIVE) Influenza Type B Ag (NEGATIVE) RSV (PCR) (NEGATIVE) SARS-CoV-2 (PCR) (NEGATIVE) 08/02/23 08/02/23 08/02/23 Range/Units 23:20 23:36 23:59 WBC (4.0-10.5) x10^3/uL RBC (4.1-5.4) x10^6/uL Hgb (12.0-16.0) g/dL Hct (35-47) % MCV (78-100) fL MCH (26-32) pg MCHC (32-36) g/dL RDW (11.5-14.0) % Plt Count (150-450) x10^3/uL MPV (7.5-11.0) fL Gran % (36.0-66.0) % Immature Gran % (Auto) (0.00-0.4) % Nucleat RBC Rel Count (0.00-0.1) % Eos # (Auto) (0-0.5) x10^3/uL Immature Gran # (Auto) (0.00-0.03) x10^3u/L Absolute Lymphs (auto) (1.0-4.6) x10^3/uL Absolute Monos (auto) (0.0-1.3) x10^3/uL Absolute Nucleated RBC (0.00-0.01) x10^3u/L Lymphocytes % (24.0-44.0) % Monocytes % (0.0-12.0) % Eosinophils % (0.00-5.0) % Basophils % (0.0-0.4) % Absolute Granulocytes (1.4-6.9) x10^3/uL Basophils # (0-0.4) x10^3/uL Sodium (135-145) mmol/L Potassium (3.5-5.1) mmol/L Chloride (98-107) mmol/L Carbon Dioxide (22-30) mmol/L Anion Gap (5-15) MEQ/L BUN (7-17) mg/dL Creatinine (0.52-1.04) mg/dL Estimated GFR ML/MIN Glucose (74-106) mg/dL Lactic Acid 1.8 (0.4-2.0) Calcium (8.4-10.2) mg/dL Magnesium (1.6-2.3) mg/dL Total Bilirubin (0.2-1.3) mg/dL AST (14-36) U/L ALT (0-35) U/L Alkaline Phosphatase (38-126) U/L Troponin I (0.000-0.033) ng/mL NT-Pro-B Natriuret Pep (<300) pg/mL Serum Total Protein (6.3-8.2) g/dL Albumin (3.5-5.0) g/dL Triglycerides (30-150) mg/dL Cholesterol (50-200) mg/dL LDL Cholesterol (30-100) mg/dL HDL Cholesterol (40-60) mg/dL Heart Disease Risk Ratio Urine Color Yellow (Yellow) Urine Appearance Clear (Clear) Urine pH 5.5 (4.6-8.0) Ur Specific [place] <=1.005 (1.005-1.030) Urine Protein Negative (Negative) Urine Glucose (UA) Negative (Negative) mg/dL Urine Ketones Negative (Negative) Urine Blood Negative (Negative) Urine Nitrite Negative (Negative) Urine Bilirubin Negative (Negative) Urine Urobilinogen 0.2 (0.2) mg/dL Ur Leukocyte Esterase Small A (Negative) U Hyaline Cast (Auto) NONE SEEN (0-2) /LPF Urine Microscopic RBC 0-2 (0-5) /HPF Urine Microscopic WBC 6-10 A (0-5) /HPF Ur Epithelial Cells None Seen (None Seen) /HPF Urine Bacteria Few A (None Seen) /HPF Urine Culture Reflexed YES (NO) Influenza Type A Ag NEGATIVE (NEGATIVE) Influenza Type B Ag NEGATIVE (NEGATIVE) RSV (PCR) NEGATIVE (NEGATIVE) SARS-CoV-2 (PCR) NEGATIVE (NEGATIVE) 08/03/23 08/03/23 08/03/23 Range/Units 03:24 07:10 07:15 WBC 5.5 (4.0-10.5) x10^3/uL RBC 4.65 (4.1-5.4) x10^6/uL Hgb 14.7 (12.0-16.0) g/dL Hct 44.2 (35-47) % MCV 95.1 (78-100) fL MCH 31.6 (26-32) pg MCHC 33.3 (32-36) g/dL RDW 12.9 (11.5-14.0) % Plt Count 169 (150-450) x10^3/uL MPV 10.5 (7.5-11.0) fL Gran % (36.0-66.0) % Immature Gran % (Auto) (0.00-0.4) % Nucleat RBC Rel Count (0.00-0.1) % Eos # (Auto) (0-0.5) x10^3/uL Immature Gran # (Auto) (0.00-0.03) x10^3u/L Absolute Lymphs (auto) (1.0-4.6) x10^3/uL Absolute Monos (auto) (0.0-1.3) x10^3/uL Absolute Nucleated RBC (0.00-0.01) x10^3u/L Lymphocytes % (24.0-44.0) % Monocytes % (0.0-12.0) % Eosinophils % (0.00-5.0) % Basophils % (0.0-0.4) % Absolute Granulocytes (1.4-6.9) x10^3/uL Basophils # (0-0.4) x10^3/uL Sodium (135-145) mmol/L Potassium (3.5-5.1) mmol/L Chloride (98-107) mmol/L Carbon Dioxide (22-30) mmol/L Anion Gap (5-15) MEQ/L BUN (7-17) mg/dL Creatinine (0.52-1.04) mg/dL Estimated GFR ML/MIN Glucose (74-106) mg/dL Lactic Acid (0.4-2.0) Calcium (8.4-10.2) mg/dL Magnesium (1.6-2.3) mg/dL Total Bilirubin (0.2-1.3) mg/dL AST (14-36) U/L ALT (0-35) U/L Alkaline Phosphatase (38-126) U/L Troponin I < 0.012 < 0.012 (0.000-0.033) ng/mL NT-Pro-B Natriuret Pep (<300) pg/mL Serum Total Protein (6.3-8.2) g/dL Albumin (3.5-5.0) g/dL Triglycerides (30-150) mg/dL Cholesterol (50-200) mg/dL LDL Cholesterol (30-100) mg/dL HDL Cholesterol (40-60) mg/dL Heart Disease Risk Ratio Urine Color (Yellow) Urine Appearance (Clear) Urine pH (4.6-8.0) Ur Specific [place] (1.005-1.030) Urine Protein (Negative) Urine Glucose (UA) (Negative) mg/dL Urine Ketones (Negative) Urine Blood (Negative) Urine Nitrite (Negative) Urine Bilirubin (Negative) Urine Urobilinogen (0.2) mg/dL Ur Leukocyte Esterase (Negative) U Hyaline Cast (Auto) (0-2) /LPF Urine Microscopic RBC (0-5) /HPF Urine Microscopic WBC (0-5) /HPF Ur Epithelial Cells (None Seen) /HPF Urine Bacteria (None Seen) /HPF Urine Culture Reflexed (NO) Influenza Type A Ag (NEGATIVE) Influenza Type B Ag (NEGATIVE) RSV (PCR) (NEGATIVE) SARS-CoV-2 (PCR) (NEGATIVE) 08/03/23 Range/Units 07:15 WBC (4.0-10.5) x10^3/uL RBC (4.1-5.4) x10^6/uL Hgb (12.0-16.0) g/dL Hct (35-47) % MCV (78-100) fL MCH (26-32) pg MCHC (32-36) g/dL RDW (11.5-14.0) % Plt Count (150-450) x10^3/uL MPV (7.5-11.0) fL Gran % (36.0-66.0) % Immature Gran % (Auto) (0.00-0.4) % Nucleat RBC Rel Count (0.00-0.1) % Eos # (Auto) (0-0.5) x10^3/uL Immature Gran # (Auto) (0.00-0.03) x10^3u/L Absolute Lymphs (auto) (1.0-4.6) x10^3/uL Absolute Monos (auto) (0.0-1.3) x10^3/uL Absolute Nucleated RBC (0.00-0.01) x10^3u/L Lymphocytes % (24.0-44.0) % Monocytes % (0.0-12.0) % Eosinophils % (0.00-5.0) % Basophils % (0.0-0.4) % Absolute Granulocytes (1.4-6.9) x10^3/uL Basophils # (0-0.4) x10^3/uL Sodium 139 (135-145) mmol/L Potassium 4.3 D (3.5-5.1) mmol/L Chloride 106 (98-107) mmol/L Carbon Dioxide 24 (22-30) mmol/L Anion Gap 13.6 (5-15) MEQ/L BUN 13 (7-17) mg/dL Creatinine 0.59 (0.52-1.04) mg/dL Estimated GFR 103.1 ML/MIN Glucose 174 H (74-106) mg/dL Lactic Acid (0.4-2.0) Calcium 9.2 (8.4-10.2) mg/dL Magnesium 2.0 (1.6-2.3) mg/dL Total Bilirubin 0.40 (0.2-1.3) mg/dL AST 28 (14-36) U/L ALT 24 (0-35) U/L Alkaline Phosphatase 79 (38-126) U/L Troponin I (0.000-0.033) ng/mL NT-Pro-B Natriuret Pep (<300) pg/mL Serum Total Protein 7.2 (6.3-8.2) g/dL Albumin 4.1 (3.5-5.0) g/dL Triglycerides 53 (30-150) mg/dL Cholesterol 168 (50-200) mg/dL LDL Cholesterol 101 H (30-100) mg/dL HDL Cholesterol 61 H (40-60) mg/dL Heart Disease Risk Ratio 3.0 Urine Color (Yellow) Urine Appearance (Clear) Urine pH (4.6-8.0) Ur Specific [place] (1.005-1.030) Urine Protein (Negative) Urine Glucose (UA) (Negative) mg/dL Urine Ketones (Negative) Urine Blood (Negative) Urine Nitrite (Negative) Urine Bilirubin (Negative) Urine Urobilinogen (0.2) mg/dL Ur Leukocyte Esterase (Negative) U Hyaline Cast (Auto) (0-2) /LPF Urine Microscopic RBC (0-5) /HPF Urine Microscopic WBC (0-5) /HPF Ur Epithelial Cells (None Seen) /HPF Urine Bacteria (None Seen) /HPF Urine Culture Reflexed (NO) Influenza Type A Ag (NEGATIVE) Influenza Type B Ag (NEGATIVE) RSV (PCR) (NEGATIVE) SARS-CoV-2 (PCR) (NEGATIVE) Micro Results-Entire Visit: Microbiology 08/02/23 23:59 Urine Culture - Preliminary Clean Catch Midstream NO GROWTH TO DATE - Radiology Exams Ordered Rad Exams-Entire Visit: Radiology Procedures Category Date Time Status CHEST 1 VIEW (PORTABLE) Stat Exams 08/02/23 22:[address] ANGIOGRAPHY NECK [CT] Stat Exams 08/03/23 01:42 Completed CTA HEAD W AND/OR WO CONTRAST [CT] Stat Exams 08/03/23 01:42 Completed ECHO W/2D AND DOPPLER [US] Routine Exams 08/03/23 08:02 Taken HEAD WITHOUT CONTRAST [CT] Stat Exams 08/02/23 22:53 Completed MRI BRAIN W/O CONTRAST [MRI] Routine Exams 08/03/23 05:00 Ordered - Procedures and Test Procedures and Tests throughout Hospitalization: Therapy Orders & Screens 08/02/23 23:37 Respiratory Therapy Assessment DAILY Comment: 08/03/23 04:10 Oxygen Nasal Cannula 2 lpm Comment: Respiratory Therapy Consult ONCE Comment: Reason For Exam: 08/03/23 05:10 Smoking Cessation Education ONCE Comment: Diagnosis: COPD exasp/stroke like symptoms Smoking Status: Current every day smoker How long have you smoked: 11yo Approximately how many cigarettes per day: 2 packs Do you dip or chew tobacco: No 08/03/23 06:06 Respiratory Therapy Assessment DAILY Comment: Diagnosis: COPD exasp/stroke like symptoms 08/03/23 07:00 Respiratory MDI DAILY Comment: ARNUITY ELLIPTA 100MCG 1 INHALATION DAILY Diagnosis: COPD exasp/stroke like symptoms 08/03/23 08:03 PT Eval & Treat (MD Order) ONCE Reason for Eval:: stroke Diagnosis: COPD exasp/stroke like symptoms OT Eval and Treat (MD Order) ONCE Comment: Physician Instructions: Reason For Exam: Diagnosis: COPD exasp/stroke like symptoms Discharge Exam General Appearance: no apparent distress, alert Neurologic Exam: alert, oriented x 3, cooperative, normal mood/affect, nml cerebellar function, sensation nml, No motor deficits Eye Exam: PERRL, EOMI, eyes nml inspection Ears, Nose, Throat Exam: normal ENT inspection, pharynx normal, moist mucous membranes Neck Exam: normal inspection, non-tender, supple, full range of motion Respiratory Exam: wheezing (BLUL), No respiratory distress Cardiovascular Exam: regular rate/rhythm, normal heart sounds Gastrointestinal/Abdomen Exam: soft, No tenderness, No mass Pelvic Exam: deferred Rectal Exam: deferred Back Exam: normal inspection, normal range of motion, No CVA tenderness, No vertebral tenderness Extremity Exam: normal inspection, normal range of motion Skin Exam: normal color, warm, dry Final Diagnosis/Problem List - Final Discharge Diagnosis/Problem (1) Stroke-like symptoms Current Visit: Yes Status: Acute Assessment & Plan: - MRI brain 08/03/23: Impression: Negative MRI brain without contrast exam. Incidental minimal paranasal sinus disease - CT angiography: 08/02 IMPRESSION: atent extra-cranial carotid and vertebral arteries. No stenotic lesions, aneurysmal dilatation or dissecting intimal flaps - CTA 08/02: IMPRESSION: 1. Patent intracranial vessels constituting the [place] without any occlusion, aneurysmal dilatation, or arteriovenous malformation. 2. In distinction of the right side pontine hypodense area, possibly artifactual. 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 Code(s): R29.90 - UNSPECIFIED SYMPTOMS AND SIGNS INVOLVING THE NERVOUS SYSTEM (2) UTI (urinary tract infection) Current Visit: Yes Status: Acute Assessment & Plan: - UC negative- Op antibiotics not needed for this dx Code(s): N39.0 - URINARY TRACT INFECTION, SITE NOT SPECIFIED (3) COPD exacerbation Current Visit: Yes Status: Acute Assessment & Plan: - RA 98% - ceftriaxone, steroids, duonebs Code(s): J44.1 - CHRONIC OBSTRUCTIVE PULMONARY DISEASE W (ACUTE) EXACERBATION (4) Obesity (BMI 30-39.9) Current Visit: Yes Status: Chronic Assessment & Plan: - advised diet and exercise control Code(s): E66.9 - OBESITY, UNSPECIFIED (5) HTN (hypertension) Current Visit: Yes Status: Acute Code(s): I10 - ESSENTIAL (PRIMARY) HYPERTENSION (6) Smoker Current Visit: Yes Status: Chronic Assessment & Plan: - advised cessation - refused cessation - refused nicotine patch Code(s): F17.200 - NICOTINE DEPENDENCE, UNSPECIFIED, UNCOMPLICATED (7) Hypokalemia Current Visit: Yes Status: Resolved Assessment & Plan: - resolved- K+ 4.3 today Code(s): E87.6 - HYPOKALEMIA - Discharge Discharge Date: 08/03/23 Disposition: Home, Self-Care Condition: Stable Prescriptions: New Aspirin EC 81 mg [Ecotrin 81 mg] 81 mg PO DAILY 30 Days #30 tablet Atorvastatin Calcium [Lipitor 40Mg] 80 mg PO DAILY 30 Days #30 tablet Prednisone 20 mg [Deltasone 20 mg] 20 mg PO BID 5 Days #10 tablet Azithromycin 250 mg [Zithromax 250 MG TABLET] 250 mg PO ZPACK #6 tablet Continue Lisinopril 10 mg [Zestril 10 MG] 10 mg PO DAILY Fluticasone Furoate [Arnuity Ellipta] 100 mcg IH DAILY Albuterol Sulfate [Proair Respiclick] 2 puff IH UD PRN PRN Reason: Shortness Of Breath/Wheezing Donepezil HCl 10 mg [Aricept 10 MG] 10 mg PO DAILY hydroCHLOROthiazide [Hydrochlorothiazide] 12.5 mg PO DAILY Meloxicam 15 mg [Meloxicam 15 MG] 15 mg PO DAILY Instructions: Exacerbation of COPD (DC), Obesity, Adult (DC) Follow up with: JENNIE SCOTT, ETYMOLOGY PROFESSOR [Primary Care Provider] - Call for Appointment
--- NOTE | 2023-08-03 13:36 | XRAY ---
Indication: CVA. Tongue/lip/right hand numbness. Negative CT head, CTA neck, and CTA head exams. Sagittal, coronal, and axial MRI brain performed without contrast using T1, T2, FLAIR, diffusion, and ADC sequences. Comparison: None Ventriculosulcal pattern appears symmetric. No acute intracranial hemorrhage, abnormal extra-axial fluid collection, or mass effect. Diffusion images negative Firster disc signal. Fourth ventricle is midline without hydrocephalus. 7/8 cranial nerve complex bilaterally symmetric. Normal flow void signal within the major intracerebral circulation. Normal appearing craniocervical junction and sella turcica. Minimal mucosal thickening both maxillary sinuses. Impression: Negative MRI brain without contrast exam. Incidental minimal paranasal sinus disease.
[2023-08-03 16:52] VITALS: BP 131/61; PULSE 95; RESP 19; TEMP 98.5; O2SAT 94
[2023-08-03] MEDS ORDERED: Nicoderm CQ 21 MG TOP SCH (22:00)
[2023-08-03] MEDS ORDERED: ROCEPHIN 1 GM / 100 ML NaCl 1 GM/100 ML IVPB IV SCH (22:00)
== END 2023-08-03 16:55 | disposition home or self-care (01) ==
LOC: ED 22:30 → MED SURG 08-03 03:59
PROVIDERS: ADMIT Internal Medicine Critical Care Medicine; ATTEND Internal Medicine Critical Care Medicine
DX: R29.90 Unspecified symptoms and signs involving the nervous system (principal); N39.0 Urinary tract infection, site not specified; J44.1 Chronic obstructive pulmonary disease with (acute) exacerbation; E66.9 Obesity, unspecified; I10 Essential (primary) hypertension; F17.200 Nicotine dependence, unspecified, uncomplicated; E87.6 Hypokalemia; R20.0 Anesthesia of skin; G43.109 Migraine with aura, not intractable, without status migrainosus; R06.02 Shortness of breath; Z79.899 Other long term (current) drug therapy
CPT/HCPCS: 0241U; 36000; 36415; 70450; 70496; 70498; 70551; 71045; 80053; 80061; 81001; 83605; 83721; 83735; 83880; 84484; 85025; 85027; 87040; 87077; 87086; 87186; 93005; 93041; 93306; 94640; 94762; 96374; 97161; 97165; 99285; Q3014; J0696; J2919; A9270-GY

== ENCOUNTER 2024-03-16 14:34 | Emergency (ER) | payer OTHER ==
[2024-03-16 14:53] VITALS: TEMP 97.9
--- NOTE | 2024-03-16 15:12 | ERPHSYRPT ---
- History of Present Illness Time Seen by Provider: 03/16/24 15:05 Source: patient Exam Limitations: no limitations Patient Subjective Stated Complaint: Shoulder pain- right Triage Nursing Assessment: Patient ambulated back to ED and transferred self to bed. Patient A+O X 3. Patient's skin pink, warm and dry. Patient complains of right shoulder injury. Patient states she has a bad right shoulder and stated she picked up a 12 pack of pop and put in her vehicle then started having pain. Patient stated pain is 10/10 to right shoulder. Patient states when she moves her right shoulder she has pain down to her right elbow. Physician History: Pt states about 2 hours ago she pushed a 12 pack of pop in her car in the [place] and had right shoulder/upper arm pain; denies numbness of her right hand digits. Allergies/Adverse Reactions: No Known Drug Allergies Allergy (Verified 03/16/24 14:41) Home Medications: Albuterol Sulfate [Proair Respiclick] 2 puff IH UD PRN 08/02/23 [History] Donepezil HCl 10 mg [Aricept 10 MG] 10 mg PO DAILY 08/02/23 [History] Fluticasone Furoate [Arnuity Ellipta] 100 mcg IH DAILY 08/02/23 [History] Lisinopril 10 mg [Zestril 10 MG] 10 mg PO DAILY 08/02/23 [History] Meloxicam 15 mg [Meloxicam 15 MG] 15 mg PO DAILY 08/02/23 [History] hydroCHLOROthiazide [Hydrochlorothiazide] 12.5 mg PO DAILY 08/02/23 [History] Hx Tetanus, Diphtheria Vaccination/Date Given: No Hx Influenza Vaccination/Date Given: No Hx Pneumococcal Vaccination/Date Given: No Immunizations Up to Date: Yes Travel Risk - International Travel Have you traveled outside of the country in past 3 weeks: No - Emerging Infectious Disease Are you exhibiting symptoms associated with any current EIDs: No - Review of Systems Musculoskeletal: Other (right shoulder/upper arm pain today) - Past Medical History Pertinent Past Medical History: Yes Neurological History: Dementia, Migraines ENT History: No Pertinent History, Cataracts Cardiac History: Hypertension Respiratory History: COPD, Emphysema Endocrine Medical History: No Pertinent History Musculoskeletal History: Osteoarthritis GI Medical History: No Pertinent History History: No Pertinent History Psycho-Social History: No Pertinent History Female Reproductive Disorders: No Pertinent History - Past Surgical History Past Surgical History: Yes Neuro Surgical History: No Pertinent History Cardiac: No Pertinent History Respiratory: No Pertinent History Gastrointestinal: No Pertinent History Genitourinary: No Pertinent History Musculoskeletal: No Pertinent History Female Surgical History: Section Significant Family History: no pertinent family hx - Social History Smoking Status: Current every day smoker How long have you smoked: 11yo Exposure to second hand smoke: Yes Drug Use: marijuana - Social Determinants of Health Will the patient participate in the screening: Yes Do you worry about a steady place to live?: No Do you have any problems with any of the following?: No known problems In the past 12 months,have you had to go without utilities?: No Transportation Issues: No Has anyone in your support network made you feel unsafe?: No Have you or anyone in your house had to go without enough: No - Nursing Vital Signs Nursing Vital Signs: Initial Vital Signs Temperature 97.9 F 03/16/24 14:42 Pulse Rate 72 03/16/24 14:42 Respiratory Rate 18 03/16/24 14:42 Blood Pressure 124/90 03/16/24 14:42 O2 Sat by Pulse Oximetry 95 03/16/24 14:42 Pain Scale Pain Intensity 4 - Physical Exam General Appearance: alert Shoulder Exam: limited ROM (flexion to 90 degrees of right shoulder), No non- tender (mild tenderness anteriorly over right shoulder/upper arm) Wrist Exam: normal ROM Hand Exam: normal ROM Neuro/Tendon Exam: normal sensation Skin Exam: warm, dry SpO2 Interpretation: normal SpO2: 95 O2 Delivery: Room Air - Course Nursing assessment & vital signs reviewed: Yes - Radiology Exams Right Shoulder X-ray Interpretation: Teleradiologist Report (No acute osseous abnormality.) Right Humerus X-ray Interpretation: Teleradiologist Report (See report.) Ordered Tests: Active Orders 24 hr Category Date Time Status HUMERUS Stat Exams 03/16/24 15:10 Completed SHOULDER Stat Exams 03/16/24 15:10 Completed Medication Summary Discontinued Medications Generic Name Dose Route Start Last Admin Trade Name Freq PRN Reason Stop Dose Admin Hydrocodone Bitart/Acetaminophen 2 tab 03/16/24 15:10 03/16/24 15:19 Hydrocodone/Apap 5/325 1 Tab Tablet PO 03/16/24 15:11 2 tab STAT ONE Administration Hydrocodone Bitart/Acetaminophen Confirm 03/16/24 15:15 Hydrocodone/Apap 5/325 1 Tab Tablet Administered 03/16/24 15:16 Dose 2 tab .ROUTE .STK-MED ONE - Progress Progress: unchanged Counseled pt/family regarding: diagnosis, rad results Medical Desision Making - Diagnostic Testing Diagnostic test were ordered, analyzed, and reviewed by me: Yes Radiological Interpretation: Teleradiologist Report - Departure Departure Disposition: Home Clinical Impression: right shoulder/arm pain Condition: Stable Critical Care Time: No Referrals: JENNIE SCOTT, EXCELLENCE COACH [Primary Care Provider] - Follow up/PCP as directed Instructions: Shoulder Sprain (DC) Additional Instructions: Follow up with private doctor tomorrow. Wear right arm sling as needed. Avoid lifting with right arm.
[2024-03-16] MEDS ORDERED: NORCO 5/325 MG ONE ×2 (15:15→19:56)
[2024-03-16] MEDS: NORCO 5/325 MG PO ONE ×2 (15:19→20:08)
--- NOTE | 2024-03-16 18:50 | XRAY ---
CLINICAL HISTORY: pain COMPARISON: None. TECHNIQUE: X-ray right humerus AP and lateral views. FINDINGS: Mild decreased bony mineralization. No acute fracture identified. Presence of some subchondral cyst at the humeral head. Partially visualized elbow shows osteoarthritic changes. Soft tissues appear unremarkable. IMPRESSION: 1. Mild osteopenia. 2. Mild degenerative changes. 3. Partially visualized elbow shows osteoarthritic changes. Suggest dedicated study if clinically warranted. Electronically Signed by: Darren Izquierdo MD. (03/16/2024 18:45:51 EST)
--- NOTE | 2024-03-16 18:56 | XRAY ---
CLINICAL HISTORY: pain COMPARISON: None. TECHNIQUE: X-rays of the right shoulder were obtained in AP with external and internal rotation and Y views. FINDINGS: No evidence of fracture or dislocation was noted. Normal bone density was seen. Normal articulation and joint spaces are seen. IMPRESSION: 1. No acute osseous abnormality. 2. No other significant abnormality. DISCLAIMER:A subtle bone abnormality or fracture may not be readily apparent on x-rays, thus clinical correlation and further imaging including follow up CT, MRI, or follow up x-rays are advised as needed. Electronically Signed by: Darren Izquierdo MD. (03/16/2024 18:51:07 EST)
[2024-03-16 19:22] VITALS: PULSE 60; RESP 16
[2024-03-16 20:06] VITALS: BP 121/71; O2SAT 94
== END 2024-03-16 20:11 | disposition home or self-care (01) ==
LOC: ED 14:34
DX: M25.511 Pain in right shoulder (principal); M79.601 Pain in right arm; X50.0XXA Overexertion from strenuous movement or load, initial encounter
CPT/HCPCS: 73030; 73060; 99283; A9270-GY